=== PATIENT | male | born 1965 | race African-American/Black ===

== ENCOUNTER 2018-01-06 06:15 | Emergency (ER) | payer BC ==
[~2018-01-06] VITALS: Ht 193 cm; Wt 125.1 kg
[~2018-01-06 06:15] MED LIST: ASPIR 8181 M1 PO; CLOTRIMAZOLE-BE15 GM TP; CRESTOR10 MG PO; IRBESARTAN150 MG PO; MOTRIN800 MG PO; MULTI VITAMIN1 EACH PO; TESTONE CI200 MG/1 M IM; TESTOSTERO200 MG/12 IM; XARELTO20 MG PO
[2018-01-06 06:38] LABS: BASOPHIL (%) 0.3 % (0-1); EOSINOPHIL (%) 2.5 % (0-5); EOSINOPHIL COUNT 0.1 K/uL (0-0.3); HEMATOCRIT 45.8 % (38.0-50.0); HEMOGLOBIN 15.6 G/DL (12.5-16.6); LYMPHOCYTE COUNT 1.2 K/uL (1.0-2.8); MCH 31.9 PG (29.0-34.0); MCHC 34.1 G/DL (30.0-36.0); MCV 93.7 FL (86-99); MONOCYTE (%) 9.5 % (3-12); MONOCYTE COUNT 0.4 K/uL (0-0.8); NEUTROPHIL (%) 54.7 % (45-76); PLATELET COUNT 174 K/uL (156-360); RBC DIS.WIDTH-CV 12.2 % (11.8-14.6); RBC DIS.WIDTH-SD 42.1 % (39-53); RED BLOOD COUNT 4.89 M/uL (4.00-5.50); WHITE BLOOD COUNT 3.7 K/uL (4.1-10.2)
[2018-01-06 07:22] LABS: CHLORIDE 108 MEQ/L (99-109); GFR ESTIMATE (CALCULATED) > 59 mL/min/ (58.99-99999); GLUCOSE 116 mg/dL (70-99); POTASSIUM 4.5 MEQ/L (3.7-5.4); SODIUM 143 MEQ/L (136-147); UREA NITROGEN (BUN) 20 mg/dL (9-23)
[2018-01-06 07:45] VITALS: BP 117/77
== END 2018-01-06 07:46 | disposition home or self-care (01) ==
LOC: EME 06:15
PROVIDERS: Emergency Medicine
DX: R00.2 Palpitations (principal); Z86.79 Personal history of other diseases of the circulatory system; E78.5 Hyperlipidemia, unspecified; J45.909 Unspecified asthma, uncomplicated; G43.909 Migraine, unspecified, not intractable, without status migrainosus; R56.9 Unspecified convulsions; G47.30 Sleep apnea, unspecified; F31.9 Bipolar disorder, unspecified; Z79.82 Long term (current) use of aspirin; Z86.39 Personal history of other endocrine, nutritional and metabolic disease; Z85.9 Personal history of malignant neoplasm, unspecified; Z90.79 Acquired absence of other genital organ(s)
CPT/HCPCS: 80048; 85025; 93005; 99281; 99284

== ENCOUNTER 2018-02-10 11:57 | Emergency (ER) | payer BC ==
[~2018-02-10] VITALS: Ht 193 cm; Wt 123.7 kg
[2018-02-10 13:04] LABS: HEMATOCRIT 43.8 % (38.0-50.0); HEMOGLOBIN 14.9 G/DL (12.5-16.6); MCH 31.8 PG (29.0-34.0); MCV 93.4 FL (86-99); PLATELET COUNT 157 K/uL (156-360); RBC DIS.WIDTH-CV 12.4 % (11.8-14.6); RBC DIS.WIDTH-SD 42.4 % (39-53); RED BLOOD COUNT 4.69 M/uL (4.00-5.50); WHITE BLOOD COUNT 2.7 K/uL (4.1-10.2)
[2018-02-10 13:17] LABS: CHLORIDE 107 mEq/L (99-109); POTASSIUM 3.6 mEq/L (3.7-5.4); SODIUM 142 mEq/L (136-147)
[2018-02-10 13:19] LABS: GLUCOSE 107 mg/dL (70-99)
[2018-02-10 13:23] LABS: CREATININE 1.1 mg/dL (0.6-1.3); GFR ESTIMATE (CALCULATED) > 59 mL/min/ (58.99-99999)
[2018-02-10 13:24] LABS: UREA NITROGEN (BUN) 15 mg/dL (9-23)
[2018-02-10 13:26] LABS: TROP-I INTERPRETATION NEGATIVE; TROPONIN-I < 0.01 ng/mL (0.0-0.30)
[2018-02-10 15:02] LABS: THYROTROPIN (TSH) 0.44 MIU/L (0.4-5.5)
[2018-02-10 15:13] LABS: MONOSPOT (MONONUCLEOSIS SEROL) NEGATIVE
[2018-02-10 15:19] VITALS: BP 140/79
[2018-02-10 15:25] LABS: TROP-I INTERPRETATION NEGATIVE; TROPONIN-I 0.02 ng/mL (0.0-0.30)
== END 2018-02-10 15:22 | disposition home or self-care (01) ==
LOC: EME 11:57
PROVIDERS: Physician Assistant
DX: R53.83 Other fatigue (principal); D72.819 Decreased white blood cell count, unspecified; E78.5 Hyperlipidemia, unspecified; J45.909 Unspecified asthma, uncomplicated; G47.30 Sleep apnea, unspecified; F31.9 Bipolar disorder, unspecified; Z79.82 Long term (current) use of aspirin; Z86.79 Personal history of other diseases of the circulatory system; Z86.39 Personal history of other endocrine, nutritional and metabolic disease; Z85.9 Personal history of malignant neoplasm, unspecified; Z98.890 Other specified postprocedural states; Z98.52 Vasectomy status
CPT/HCPCS: 71046; 80048; 84443; 84484; 85027; 86308; 93005; 99281; 99284